=== PATIENT | female | born 1950 | race Caucasian/White ===

== ENCOUNTER → 2017-04-28 | Outpatient (CLI) | payer MEDICARE, OTHER ==
[~2017-04-28] MED LIST: ASPI-496 PO; ATEN5POW PO; CARB1TAB46; CARV12.543 PO; CHOL5000 PO; CHOL500045 PO; FURO-92 PO; HYDR-3237 PO; LEVO200T PO; LOSA50TA6 PO; LOVA40TA65; MULT1CAP19 PO; OMEP10CA4; POTA99TA14; POTA99TA14 PO; TIOT18CA IH; TRAZ5POW; WARF5TAB PO; WARF7.5T PO
== END | disposition home or self-care (01) ==
LOC: CFH 10:47
PROVIDERS: ATTEND Surgery
DX: E04.2 Nontoxic multinodular goiter (principal)
CPT/HCPCS: 76536

== ENCOUNTER → 2019-08-31 | Outpatient (CLI) | payer MEDICARE, OTHER ==
[~2019-08-31] MED LIST changes: +LOSA50TA14 PO; -LOSA50TA6 PO; +LOVA-41; -LOVA40TA65; -OMEP10CA4; +OMEP10CA5
== END | disposition home or self-care (01) ==
LOC: CFH 09:24
PROVIDERS: ATTEND Family Medicine
DX: R92.8 Other abnormal and inconclusive findings on diagnostic imaging of breast (principal)
CPT/HCPCS: 76642; 77066; G0279